=== PATIENT | female | born 1965 | race Caucasian/White ===

== ENCOUNTER 2018-08-18 14:39 | Emergency (ER) | payer BC, OTHER ==
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
[2018-08-18 15:19] VITALS: BP 169/102
== END 2018-08-18 15:18 | disposition home or self-care (01) ==
DX: I10 Essential (primary) hypertension (principal); E03.9 Hypothyroidism, unspecified